=== PATIENT | female | born 1965 | race African-American/Black ===

== ENCOUNTER 2019-08-14 15:59 | Emergency (ER) | payer OTHER, SELFPAY ==
[2019-08-14] MEDS ORDERED: Albuterol Sulfate 2.5 mg/3 ml Neb ONE (16:40)
[2019-08-14] MEDS ORDERED: predniSONE 20 MG TAB ONE (17:20)
--- NOTE | 2019-08-14 17:45 | RAD ---
FRONTAL RADIOGRAPH CHEST: 08/14/19 COMPARISON: 07/26/09. HISTORY: Asthma, dyspnea. FINDINGS: No pneumothorax, pleural fluid, focal consolidation or alveolar edema. Heart and mediastinal contours are stable. IMPRESSION: No acute findings. POS: [facility]
== END 2019-08-14 18:04 | disposition home or self-care (01) ==
LOC: ERS 15:59
DX: J45.901 Unspecified asthma with (acute) exacerbation (principal); D64.9 Anemia, unspecified; F41.9 Anxiety disorder, unspecified; F32.9 Major depressive disorder, single episode, unspecified; Z79.899 Other long term (current) drug therapy
CPT/HCPCS: 71045; 94640; 94644; J7512; J7611; J7620